=== PATIENT | female | born 1975 | race Caucasian/White ===

== ENCOUNTER → 2021-11-17 | Outpatient (CLI) | payer OTHER ==
[~2021-11-17] MED LIST: BACTRIM DS 8001 TA1 PO; IMITREX; TYLENOL W/CODEI1 TA2 PO; VICODIN ES 7501 TAB PO
== END | disposition home or self-care (01) ==
LOC: CARD 08:54
PROVIDERS: ATTEND Internal Medicine
DX: I51.7 Cardiomegaly (principal)